=== PATIENT | female | born 1940 | race Caucasian/White ===

== ENCOUNTER → 2018-02-15 | Outpatient (CLI) | payer OTHER, BC | LOC: RAD 12:53 → LABMALL 12:53 | DX: J44.9 Chronic obstructive pulmonary disease, unspecified (principal); J98.11 Atelectasis; J98.4 Other disorders of lung; J45.909 Unspecified asthma, uncomplicated ==

== ENCOUNTER → 2018-02-17 | Outpatient (CLI) | payer OTHER, BC ==
--- NOTE | ~2018-02-17 | P ---
[facility] [place] [address] PROCEDURE REPORT Name: MADISON SAAVEDRA I Room #: REG [facility]#: [id number] Admission: 02/17/18 Attend Phys: Zeferino Oconnor MD Discharge: Date of : 42 Report #: [id number] THIS REPORT FOR: //name// CC: KITTY RAGSDALE FAM unknown Zeferino Oconnor Physician staff Primary Care Provider DATE OF SERVICE: 02/17/2018 PROCEDURE: Fiberoptic bronchoscopy with protected specimen brush of the right lower lobe and bronchial lavage in the right lower lobe. INDICATION: Diffuse mucopurulent secretions and persistent infiltrates. ASA CLASSIFICATION: Class 3. PROCEDURE NOTATION: After discussing risks, benefits of planned procedure she desired to proceed. After obtaining informed consent, she was brought to oil laboratory analyst 3 where she was placed on continuous cardiopulmonary monitoring and supplemental oxygen. She was then given 2% lidocaine nebulized to anesthetize the upper respiratory tract. Once accomplished, she received conscious sedation. A total of 5 mg Versed and 25 mcg of fentanyl were titrated during the procedure to provide adequate sedation. Once accomplished, bronchoscope was passed through an oral biteblock until the vocal cords visualized. Right vocal cord was nonmobile and more fixated in a central position. Left vocal cord moved appropriately both before and after procedure. A 2% lidocaine was then instilled in the vocal cords and then at the trachea to provide topical anesthesia. Bronchoscope was then passed in the trachea and airways were surveyed. FINDINGS: Extensive mucopurulent secretions noted throughout the trachea and the mainstem bronchi as well as throughout all the airways, but more so on the right. The airways were significantly erythematous, but there were no endobronchial masses. Minor oozing was noted just with the bronchoscope trauma. The airways were cleansed with saline. Once accomplished, the mucopurulent secretions in the right lower lobe were sampled using a protected specimen brush, which was placed in 1 mL of saline and sent for quantitative cultures. A bronchial lavage was then performed in the right lower lobe and sent for microbiologic and cytologic testing. Airways appeared to be patent with only a minimal amount of secretions remaining at the end of procedure. The patient tolerated it well with no noted complications. IMPRESSION: Diffuse mucopurulent secretions and persistent pulmonary infiltrates, worrisome for ongoing infectious process or aspiration. [address] [address] PROCEDURE REPORT Name: MADISON SAAVEDRA I Room #: REG [facility]#: [id number] Admission: 02/17/18 Attend Phys: Zeferino Oconnor MD Discharge: Date of : 42 Report #: [id number] RECOMMENDATIONS: 1. Await microbiologic and cytologic tests. 2. Continue with airway clearance measures aggressively including flutter valve and aerosol treatments. 3. Consider addition of antibiotics. Given the patient's extensive allergies consider a trial of Biaxin 500 twice daily while awaiting cultures. 4. Would hold cultures for nocardia. <ELECTRONICALLY SIGNED> By: Zeferino Oconnor MD 02/18/18 1057 [id number] Zeferino Oconnor MD /nt
--- NOTE | ~2018-02-17 | PATH ---
[facility] [address] [place] [address] PATHOLOGY RPT PROCEDURE Name: MADISON SAAVEDRA I [id number] Admission: 02/17/18 Date of : 42 Discharge: Report #: [id number] Path Case #: [id number] Note [facility] Accession Number: [id number] TESTS RESULT FLAG UNITS REF RANGE LAB Clinician Provided Cytology Information No. of containers..01 Other (Miscellaneous) Source: BAL RLL DIAGNOSIS: 02 BAL RLL NEGATIVE FOR MALIGNANT CELLS. RARE BRONCHIAL CELLS AND MACROPHAGES ARE PRESENT. ABUNDANT OBSCURING ACUTE INFLAMMATORY CELLS ARE PRESENT. Signed out by: 02 Juan Diez MD, Pathologist NPI- [id number] Performed by: 03 Mindy Malhotra, Vault Attendant ([facility]) Gross description: 01 10 ML, YELLOW, CLOUDY /LCS FLAG LEGEND: L-Low Normal,H-High Normal,LL-Alert Low,HH-Alert High <-Panic Low,>-Panic High,A-Abnormal,AA-Critical Abnormal Performed at: [address] [place] [address] Jefe Forrester MD, [address] [address] Miranda Bravo MD, [address] [address] Tito Cueva MD, Performed at: [address] [id number] MD Jefe Forrester MD Phone: [phone]
== END | disposition home or self-care (01) ==
LOC: CATH 07:16
DX: J98.4 Other disorders of lung (principal)

== ENCOUNTER 2018-03-02 14:48 | Inpatient (IN) | payer OTHER, BC ==
[~2018-03-02] VITALS: Ht 167.6 cm; Wt 41.7 kg
--- NOTE | ~2018-03-02 | HC ---
[facility] [place] [address] CONSULTATION Name: MADISON SAAVEDRA I Room #: 461-P ADM IN M.R.#: [id number] Admission: 03/02/18 Attend Phys: Medhat Al MD Discharge: Date of : 42 Report #: [id number] THIS REPORT FOR: //name// CC: FAM unknown Gustavo Wheeler DATE OF SERVICE: 03/03/2018 ATTENDING PHYSICIAN: Gustavo Wheeler MD CONSULTATION REQUESTED BY: Zeferino Oconnor MD REASON FOR CONSULTATION: Pseudomonas aeruginosa in sputum. Bronchiectasis. HISTORY OF PRESENT ILLNESS: A 77-year-old white woman with longstanding history of bronchial asthma, had developed an episode of pneumonia around July time that failed to respond to multiple courses of antibiotics. She underwent bronchoscopy by Dr. Oconnor and the bronchoscopy specimen revealed growth of Pseudomonas aeruginosa. The patient has chronic cough and some sputum production. PAST MEDICAL HISTORY: Bronchial asthma, possible emphysema and bronchiectasis. Multiple drug allergies and food intolerance, question gluten enteropathy. Broken hip requiring open reduction and internal fixation. History of knee surgery. Vocal cord paralysis pharyngeal dysfunction, question aspiration. DRUG ALLERGIES: SHE IS ALLERGIC TO CIPROFLOXACIN, CLINDAMYCIN, FEXOFENADINE, SULFAMETHOXAZOLE, TRIMETHOPRIM WELL MULTIPLE FOODS. MEDICATIONS: The patient is currently on treatment with levalbuterol inhalation treatments, meropenem 1 gram IV every 8 hours, sodium chloride 1000 mL every 20 hours. SOCIAL HISTORY: Single. Her partner from kidney cancer recently. REVIEW OF SYSTEMS: See as above and see H and P. PHYSICAL EXAMINATION: GENERAL: A frail appearing, not toxic looking woman, coughing and moving bronchial secretions. PRESENTING VITAL SIGNS: Temperature 97.8, pulse 83, respirations 20, BP 120/49. Height 5 feet 6 inches, weight 92 pounds, O2 saturation 94% on room air. HEENMT: Within range. NECK: Supple. No thyromegaly or lymphadenopathy. LUNGS: Few rhonchi at bases. HEART: S1, S2. No gallop or murmur. [facility] [address] [place] [address] CONSULTATION Name: MADISON SAAVEDRA I Room #: 461-P ADM IN M.R.#: [id number] Admission: 03/02/18 Attend Phys: Medhat Al MD Discharge: Date of : 42 Report #: [id number] ABDOMEN: Soft, no masses or megaly. PELVIC AND RECTAL: Deferred. EXTREMITIES: No clubbing, cyanosis. NEUROLOGIC: Grossly within normal limits. LABORATORY DATA: Sodium 130, potassium 4.2, BUN 22, creatinine 1.2, glucose 122, albumin 3 g/dL. WBC 10.2, hemoglobin 10.2, platelets 372,000. The sputum culture obtained during bronchoscopy on 02/17 revealed mucoid Pseudomonas aeruginosa sensitive to all tested antibiotics. RADIOLOGY EVALUATION: Chest x-ray revealed flattening of the hemidiaphragms rather large lung volumes and question basilar infiltrates, dated 06/25. ASSESSMENT: 1. Bronchiectasis--emphysema and lower respiratory tract infection with Pseudomonas aeruginosa. 2. History of PENICILLIN, CLINDAMYCIN, BACTRIM, CIPRO ALLERGY INTOLERANCE. She believes she can take Levaquin. 3. Hypoalbuminemia. 4. Anemia of chronic disease. 5. History of broken hip, status post open reduction and internal fixation. SUGGESTIONS: I completely agree with choice of meropenem 1 gram IV every 8 hours. I will add tobramycin inhalation treatments 300 mg t.i.d. The patient is telling us she had tolerated Levaquin by mouth previously. Consequently, possibly may have to consider using this drug at the time of discharge if she is not discharged on intravenous antibiotic. Dr. Oconnor, thank you for requesting my suggestions. <ELECTRONICALLY SIGNED> By: Oscar Smith MD 03/04/18 1351 [id number] Oscar Smith MD /nt
[2018-03-02 20:26] VITALS: BP 136/76
[2018-03-02] MEDS ORDERED: MUCINEX600 MG PO (20:38)
[2018-03-02] MEDS ORDERED: LEVALBUTER1.25 MG/0. INH (20:38)
[2018-03-02 22:05] LABS: HEMATOCRIT 29.7 % (37.0-47.0); HEMOGLOBIN 10.2 gm/dL (12.0-15.0); MCH 32.4 pg (26.0-34.0); MCHC 34.5 g/dL (28.0-37.0); MCV 94.1 fL (80.0-100.0); RBC 3.15 mil/uL (4.20-5.00); RDW 12.8 % (10.5-14.5); WBC 10.2 thou/uL (4.0-11.0)
[2018-03-02 22:17] LABS: CREATININE 1.2 mg/dL (0.6-1.0); POTASSIUM 4.2 mmol/L (3.5-5.1); TOTAL BILIRUBIN 0.4 mg/dL (<0.1-1.0)
[2018-03-03 03:42] VITALS: BP 111/59
[2018-03-03 08:57] VITALS: BP 120/49
[2018-03-03 16:22] VITALS: BP 111/58
[2018-03-03 20:14] VITALS: BP 136/70
[2018-03-04 05:01] VITALS: BP 111/73
[2018-03-04 07:49] LABS: BASOPHILS 0.9 % (0.0-2.0); EOSINOPHILS 1.8 % (0.0-3.0); HEMATOCRIT 27.5 % (37.0-47.0); HEMOGLOBIN 9.6 gm/dL (12.0-15.0); LYMPHOCYTES 15.8 % (24.0-44.0); MCH 32.8 pg (26.0-34.0); MCHC 35.1 g/dL (28.0-37.0); MCV 93.3 fL (80.0-100.0); MONOCYTES 9.2 % (1.0-8.0); PLATELET COUNT 326 thou/uL (150-400); POLYS 72.3 % (36.0-66.0); RBC 2.94 mil/uL (4.20-5.00); RDW 12.7 % (10.5-14.5); WBC 5.5 thou/uL (4.0-11.0)
[2018-03-04 08:07] LABS: ALBUMIN 2.5 g/dL (3.4-5.0); CALCIUM 8.7 mg/dL (8.5-10.1); POTASSIUM 3.6 mmol/L (3.5-5.1); TOTAL BILIRUBIN 0.5 mg/dL (<0.1-1.0); TOTAL PROTEIN 7.1 g/dL (6.4-8.2)
[2018-03-04 08:41] VITALS: BP 113/71
[2018-03-04 16:35] VITALS: BP 101/67
[2018-03-04 19:20] VITALS: BP 105/59
[2018-03-05 07:01] LABS: BASOPHILS 0.7 % (0.0-2.0); HEMOGLOBIN 10.3 gm/dL (12.0-15.0); LYMPHOCYTES 17.2 % (24.0-44.0); MCH 32.2 pg (26.0-34.0); MCHC 34.3 g/dL (28.0-37.0); MCV 93.9 fL (80.0-100.0); MONOCYTES 7.7 % (1.0-8.0); PLATELET COUNT 371 thou/uL (150-400); POLYS 71.4 % (36.0-66.0); RBC 3.19 mil/uL (4.20-5.00); RDW 12.7 % (10.5-14.5); WBC 5.6 thou/uL (4.0-11.0)
[2018-03-05 07:03] LABS: POTASSIUM 3.6 mmol/L (3.5-5.1)
[2018-03-05 07:08] LABS: % SATURATION 20 % (20-39); IRON 33 ug/dL (50-170); TIBC 169 ug/dL (250-450)
[2018-03-05 07:25] VITALS: BP 135/77
[2018-03-05 08:10] LABS: FERRITIN 283 ng/mL (8-252); FOLIC ACID 15.7 ng/mL (8.6-58.9); TSH 4.626 uIU/mL (0.358-3.740)
[2018-03-05] MEDS ORDERED: TOBI 300 M300 MG/5 M INH (14:42)
[2018-03-05 20:58] VITALS: BP 118/78
[2018-03-06 08:15] VITALS: BP 113/52
[2018-03-06] MEDS ORDERED: LEVAQUIN 250 M250 MG PO (11:56)
[2018-03-06 12:49] VITALS: BP 113/52
== END 2018-03-06 15:18 | disposition home or self-care (01) | DRG 177 ==
LOC: TBA 14:48 → 4W 19:10 → SICU 03-04 22:36
PROVIDERS: Hospitalist; Internal Medicine Pulmonary Disease
DX: J15.1 Pneumonia due to Pseudomonas (principal); E43 Unspecified severe protein-calorie malnutrition; J47.0 Bronchiectasis with acute lower respiratory infection; Z68.1 Body mass index [BMI] 19.9 or less, adult; E88.09 Other disorders of plasma-protein metabolism, not elsewhere classified; D63.8 Anemia in other chronic diseases classified elsewhere; E53.8 Deficiency of other specified B group vitamins; Z60.2 Problems related to living alone; J38.00 Paralysis of vocal cords and larynx, unspecified; Z88.1 Allergy status to other antibiotic agents; Z88.8 Allergy status to other drugs, medicaments and biological substances; Z83.3 Family history of diabetes mellitus; Z91.02 Food additives allergy status; Z91.011 Allergy to milk products; Z91.010 Allergy to peanuts; Z82.49 Family history of ischemic heart disease and other diseases of the circulatory system; Z79.899 Other long term (current) drug therapy
CPT/HCPCS: 10045; 15001